=== PATIENT | female | born 2000 | race Two or more races ===

== ENCOUNTER 2024-09-03 04:09 | Emergency (ER) | payer MEDICAID ==
[~2024-09-03] VITALS: Ht 162.6 cm; Wt 68.0 kg
[2024-09-03 04:28] VITALS: TEMP 98.5
[2024-09-03] MEDS ORDERED: IBUP-1492 PO (07:07)
[2024-09-03 07:45] VITALS: BP 103/67; PULSE 75; RESP 16; O2SAT 100
== END 2024-09-03 08:35 | disposition home or self-care (01) ==
LOC: EMS 04:09
DX: S97.82XA Crushing injury of left foot, initial encounter (principal); W23.0XXA Caught, crushed, jammed, or pinched between moving objects, initial encounter; Y93.89 Activity, other specified; Y92.89 Other specified places as the place of occurrence of the external cause; Y99.8 Other external cause status
CPT/HCPCS: 99283